=== PATIENT | female | born 1960 | race Caucasian/White ===

== ENCOUNTER 2018-05-08 08:28 | Observation (INO) ==
--- NOTE | 2018-05-08 09:01 | ED ---
HPI General Chief Complaint: Fall Stated Complaint: Elbow Injury/Fall Time Seen by Provider: 05/08/18 08:39 Source: patient Mode of arrival: ambulatory Limitations: no limitations History of Present Illness HPI Narrative: Patient is a 57-year-old female who presents the emergency room complaints of right-sided elbow pain. Patient reports that she was trying to get ready this morning and tripped over little fence at her home. Patient reports that she landed directly on her right elbow, denies any trauma to the head or neck. Patient reports that when she fell, she heard a creak and now has severe pain to her right elbow. Patient with no other complaints at this time. Related Data Home Medications Medication Instructions Recorded Confirmed No Known Home Medications 05/08/18 05/08/18 Allergies Allergy/AdvReac Type Severity Reaction Status Date / Time codeine AdvReac nausea and Verified 05/08/18 08:55 vomting Review of Systems ROS: all other systems reviewed are negative PMFSH History History Provided By: Patient Surgical History Surgical History H/O breast augmentation (Acute) Social History Social History Substance History: No History of Abuse Second Hand Smoke Exposure: No Smoking Status: Former smoker How Often Do You Have a Drink Containing Alcohol: 2 to 4 times a month Recent Travel in [facility] within the Last 8 Weeks: No Recent Out of Country Travel within the Last 8 Weeks: No Exam Narrative Exam Narrative: GENERAL: moderate distress SKIN: Focused skin assessment warm/dry. HEAD: Atraumatic. Normocephalic. EYES: Pupils equal and round. No scleral icterus. No injection or drainage. ENT: No nasal bleeding or discharge. Mucous membranes pink and moist. NECK: Trachea midline. No JVD. CARDIOVASCULAR: Regular rate and rhythm. No murmur appreciated. RESPIRATORY: No accessory muscle use. Clear to auscultation. Breath sounds equal bilaterally. GASTROINTESTINAL: Abdomen soft, non-tender, nondistended. Hepatic and splenic margins not palpable. MUSCULOSKELETAL: No clubbing. No cyanosis. No edema. LUE: normal exam, RUE: normal rom to shoulder/wrist, digits of fingers, no scaphoid tendnerness, pain with rom to right elbow - no open fx of lacerations/abrasions, pulses intact, no neurovascular compromise NEUROLOGICAL: Awake and alert. No obvious cranial nerve deficits. Motor grossly within normal limits. Normal speech. PSYCHIATRIC: Appropriate mood and affect; insight and judgment normal. Procedures Orthopedic Joint Reduction Joint #1: Time Out Performed: Yes Side: right Joint Reduction Location: elbow Analgesia: procedural sedation Technique Used: traction/counter-traction Post-Reduction Neuro Exam: intact Post-Reduction Vascular Exam: intact Post Reduction X-Ray Obtained: Yes Splint Applied: Yes Patient Tolerated Procedure: well and no complications Orthopedic Splinting/Casting Injury #1: Side: right Upper Extremity Injury Location: elbow Upper Extremity Immobilizer: posterior splint and sugar tong splint Procedural Sedation Indications: fracture/dislocation reduction ASA Class: ASA 1 Normal Healthy Patient Preparation: monitoring analyst applied, pulse oximeter, supplemental O2 applied, suction/airway equipment at bedside and IV secured IV Propofol Dose (mgs): 50 Patient Tolerated Procedure: well and no complications Complications: none Course Initial Documented Vital Signs Temperature 97.8 F 05/08/18 08:29 Pulse Rate 74 05/08/18 08:29 Respiratory Rate 22 05/08/18 08:29 Blood Pressure 124/88 05/08/18 08:29 Pulse Oximetry 100 05/08/18 08:29 Last Documented Vital Signs Temperature 97.8 F 05/08/18 08:29 Pulse Rate 72 05/08/18 08:33 Respiratory Rate 16 05/08/18 08:33 Blood Pressure 172/70 H 05/08/18 08:33 Pulse Oximetry 100 05/08/18 10:33 Medical Decision Making MDM Narrative Medical decision making narrative: During the course of the patients emergency department visit, the patients history, examination, and differential diagnosis were reviewed with the patient. The patient was initially provided IM toradol for pain relief Patient with a fracture dislocation to the consented to conscious sedation and closed reduction of the elbow. After reduction, x-ray of the elbow was ordered for post reduction films. Call was made to orthopedic surgery case reviewed with Dr. Cummins with orthopedic surgery - plan to keep patient NPO and admit to medicine service Case reviewed with FP resident - will accept pt to Dr. Avila service Differential Diagnosis Differential Diagnosis: elbow fx/strain Medical Records Medical records reviewed: Yes I reviewed the patient's medical records. Lab Data Result diagrams: 05/08/18 10:50 05/08/18 10:50 Lab Results 08/13/18 08/13/18 08/13/18 Range/Units 10:50 10:50 10:50 WBC 9.5 (4.0-11.0) th/mm3 RBC 4.20 (4.00-5.30) mil/mm3 Hgb 13.2 (11.6-15.3) gm/dL Hct 38.5 (35.0-46.0) % MCV 91.6 (80.0-100.0) fL MCH 31.5 (27.0-34.0) pg MCHC 34.3 (32.0-36.0) % RDW 12.6 (11.6-17.2) % Plt Count 278 (150-450) th/mm3 MPV 7.6 (7.0-11.0) fL Neut % (Auto) 85.2 H (16.0-70.0) % Lymph % (Auto) 11.5 (9.0-44.0) % [place] % (Auto) 3.0 (0.0-8.0) % Eos % (Auto) 0.1 (0.0-4.0) % Baso % (Auto) 0.2 (0.0-2.0) % Neut # (Auto) 8.1 H (1.8-7.7) th/mm3 Lymph # (Auto) 1.1 (1.0-4.8) th/mm3 [place] # (Auto) 0.3 (0.0-0.9) th/mm3 Eos # (Auto) 0.0 (0.0-0.4) th/mm3 Baso # (Auto) 0.0 (0.0-0.2) th/mm3 WBC Differential . Differential Comment Auto diff final PT 10.1 (9.8-11.6) sec INR 1.0 Ratio APTT 25.0 (24.3-30.1) sec Sodium 137 (136-145) meq/L Potassium 3.6 (3.5-5.1) meq/L Chloride 104 (98-107) meq/L Carbon Dioxide 23.6 (21.0-32.0) meq/L Anion Gap 9 (5-15) meq/L BUN 10 (7-18) mg/dL Creatinine 0.63 (0.50-1.00) mg/dL Estimated GFR Greater than 89 (>89) mL/min Random Glucose 112 H (74-106) mg/dL Calcium 9.0 (8.5-10.1) mg/dL Imaging Data Radiologist's impression: Forearm X-Ray 05/08/18 08:56 CONCLUSION: Negative fracture of the olecranon with dislocation of the humeral head. Hand X-Ray 05/08/18 08:56 CONCLUSION: Negative for displaced fracture. Humerus X-Ray 05/08/18 08:57 CONCLUSION: 1. Fracture dislocation of the right elbow. Comminuted and displaced fracture of the proximal ulna with intra-articular extension. 2. Radial head is displaced of the radius otherwise appears to be intact. 3. Large associated joint effusion. Discharge Plan Discharge Disposition Patient Disposition: 30 Still Patient Discharge Condition Condition: Stable Discharge Details Diagnosis: Closed fracture dislocation of elbow Physicians Team ED Provider: Edwige Villegas Primary Care Provider: Primary Care Lisa Calvillo Rxs /Orders / Referrals /Forms Prescriptions: No Action No Known Home Medications RF: 0 Status ED Status: With Doctor
--- NOTE | 2018-05-08 10:19 | XR ---
EXAM DATE: 05/08/2018 10:16 AM EDT AGE/SEX: 57 years / Female INDICATIONS: Right forearm pain; fall today. CLINICAL DATA: This is the patient's initial encounter. Patient reports that signs and symptoms have been present for 1 day and indicates a pain score of 10/10. MEDICAL/SURGICAL HISTORY: None. None. COMPARISON: [facility] – [place], ELBOW COMPLETE RIGHT 4V, 05/08/2018. . FINDINGS: Severely comminuted fracture of the proximal ulna including the olecranon with dislocation of the rad ial head. The distal humerus appears intact. CONCLUSION: Negative fracture of the olecranon with dislocation of the humeral head. Electronically signed by: Magdaleno Uribe MD 05/08/2018 10:18 AM EDT
--- NOTE | 2018-05-08 10:20 | XR ---
EXAM DATE: 05/08/2018 10:11 AM EDT AGE/SEX: 57 years / Female INDICATIONS: Right hand pain; fall this morning. CLINICAL DATA: This is the patient's initial encounter. Patient reports that signs and symptoms have been present for 1 day and indicates a pain score of 5/10. MEDICAL/SURGICAL HISTORY: None. None. COMPARISON: [facility], FOREARM RIGHT 2V, 05/08/2018. . FINDINGS: Bony structures are intact and in normal alignment. Osseous density is normal. Soft tissues are unre markable. No radiopaque foreign bodies seen. CONCLUSION: Negative for displaced fracture. Electronically signed by: Magdaleno Uribe MD 05/08/2018 10:19 AM EDT
[2018-05-08] MEDS ORDERED: Morphine Inj 4 MG/ML Vial IV.PUSH ONE (10:34)
--- NOTE | 2018-05-08 10:56 | XR ---
EXAM DATE: 05/08/2018 10:26 AM EDT AGE/SEX: 57 years / Female INDICATIONS: Right arm pain after fall today. CLINICAL DATA: This is the patient's initial encounter. Patient reports that signs and symptoms have been present for 1 day and indicates a pain score of 10/10. MEDICAL/SURGICAL HISTORY: None. None. [place] [facility] [place]. . FINDINGS: Fracture dislocation of the elbow. Comminuted displaced fracture through the proximal ulna. Radial he ad is displaced but the radius appears to be otherwise intact. Large intra-articular joint effusion. Humerus is intact. CONCLUSION: 1. Fracture dislocation of the right elbow. Comminuted and displaced fracture of the proximal ulna w ith intra-articular extension. 2. Radial head is displaced of the radius otherwise appears to be intact. 3. Large associated joint effusion. Electronically signed by: Aleksadnr Mari MD 05/08/2018 10:55 AM EDT
[2018-05-08 11:23] LABS: Baso % (Auto) 0.2 % (0.0-2.0); Eos % (Auto) 0.1 % (0.0-4.0); Hematocrit 38.5 % (35.0-46.0); Hemoglobin 13.2 gm/dL (11.6-15.3); Lymph # (Auto) 1.1 th/mm3 (1.0-4.8); Lymph % (Auto) 11.5 % (9.0-44.0); Mean Corpuscular HGB Conc 34.3 % (32.0-36.0); Mean Corpuscular Hemoglobin 31.5 pg (27.0-34.0); Mean Corpuscular Volume 91.6 fL (80.0-100.0); Mean Platelet Volume 7.6 fL (7.0-11.0); Mono # (Auto) 0.3 th/mm3 (0.0-0.9); Neut # (Auto) 8.1 th/mm3 (1.8-7.7); Neut % (Auto) 85.2 % (16.0-70.0); Platelet Count 278 th/mm3 (150-450); Red Cell Distribution Width 12.6 % (11.6-17.2); White Blood Count 9.5 th/mm3 (4.0-11.0)
[2018-05-08 11:35] LABS: Anion Gap 9 meq/L (5-15); Blood Urea Nitrogen 10 mg/dL (7-18); Carbon Dioxide 23.6 meq/L (21.0-32.0); Chloride 104 meq/L (98-107); Glomerular Filtration Rate Greater Than 89 mL/min (>89); Glucose,Random 112 mg/dL (74-106); Potassium 3.6 meq/L (3.5-5.1); Sodium 137 meq/L (136-145)
[2018-05-08 11:36] LABS: Prothrombin Time 10.1 sec (9.8-11.6)
--- NOTE | 2018-05-08 12:09 | XR ---
EXAM DATE: 05/08/2018 12:07 PM EDT AGE/SEX: 57 years / Female INDICATIONS: Post reduction right elbow CLINICAL DATA: This is the patient's subsequent encounter. Patient reports that signs and symptoms h ave been present for 1 day and indicates a pain score of 10/10. MEDICAL/SURGICAL HISTORY: . right elbow fracture None. COMPARISON: [facility], HUMERUS RIGHT MIN 2V, 05/08/2018. . FINDINGS: Post splinting exam demonstrates significantly better alignment of the patient's severely comminuted fracture of the proximal ulna with extension into the olecranon process. CONCLUSION: Significantly better alignment of the patient's ulnar fracture post splinting. Electronically signed by: Gigi Uribe MD 05/08/2018 12:07 PM EDT
[2018-05-08] MEDS ORDERED: Temazepam 15 MG Capsule PO PRN (12:40)
[2018-05-08] MEDS ORDERED: Bisacodyl 10 MG Supp RECTAL PRN (12:40)
[2018-05-08] MEDS ORDERED: Naloxone Inj 0.4 MG/ML Vial IV.PUSH PRN (12:43)
[2018-05-08] MEDS ORDERED: Acetaminophen 325 MG Tablet PO PRN (12:43)
[2018-05-08] MEDS ORDERED: HYDROmorphone PF Inj 2 MG/ML Vial IV.PUSH PRN (12:43)
--- NOTE | 2018-05-08 12:46 | P.HPFP ---
History of Present Illness Primary Care Physician: No Primary Care Physician Chief Complaint: Right elbow pain History of Present Illness: 57-year-old female with no past medical history presented to the emergency room with right elbow pain after fall. Patient states she was in her normal state of health that she was helping her grandson preparing for school this morning she tripped over an object in the house and fell with all of her weight onto her right elbow. She felt a dislodging type movement but did not feel any sudden bruising or swelling at the time. She took her grandson to school and then came directly to the emergency room. Shortly after arriving she began to experience worsening pain and swelling. X-ray of the elbow in the ED showed fracture dislocation of the right elbow. Comminuted and displaced fracture of the proximal ulna with intra-articular extension. Patient was sedated in the ED and a closed reduction was performed by the ED physician. Repeat x-rays showed significantly better alignment of the ulnar fracture post splinting. - Diagnosis (1) Closed fracture dislocation of elbow (2) Nutrition, metabolism, and development symptoms Review of Systems Constitutional: Denies chills, Denies fever(s) Eyes: Denies blurry vision, Denies change in vision Cardiovascular: Denies chest pain, Denies shortness of breath Respiratory: Denies cough, Denies wheezing Gastrointestinal: Denies abdominal pain, Denies black, tarry stools, Denies nausea, Denies vomiting Genitourinary: Denies blood in urine, Denies urinary urgency Musculoskeletal: Reports joint pain, Denies neck pain Comments: R elbow only Neurologic: Denies dizziness, Denies fainting, Denies frequent falls, Denies headache(s) Hematologic/Lymphatic: Denies easy bleeding, Denies easy bruising PMFSH - History History Provided By: Patient - Medical / Surgical Hx Neg / Unobtainable Medical Problems Denied: Yes - Surgical History Surgical History: Surgical History (Last Reviewed 05/08/18 @ 15:26 by Joseph Jorge MD, R2) H/O breast augmentation - Tobacco History Second Hand Smoke Exposure: No Tobacco Use In Past 30 Days: No Smoking Status: Former smoker - Alcohol History How Often Do You Have a Drink Containing Alcohol: 2 to 4 times a month - Substance Use History Substance History: No History of Abuse - Travel History Recent Travel in the [facility] Within the Last 8 Weeks: No Recent Travel Out of the Country Within the Last 8 Weeks: No - Immunization History Tetanus Immunization: Never Vaccinated Hx Influenza Vaccine This Season: No Medications and Allergies Active Medications: Active Medications Acetaminophen (Tylenol) 650 mg PO Q6HR PRN PRN Reason: PAIN SCALE 1 TO 2 Al Hydroxide/Mg Hydroxide (Milk Of Mallory Ross) 30 ml PO Q12H PRN PRN Reason: Mild Constipation Bisacodyl (Dulcolax Supp) 10 mg RECTAL DAILY PRN PRN Reason: SEVERE CONSITIPATION Hydromorphone HCl (Dilaudid Pf Inj) 1 mg IV.PUSH Q3H PRN PRN Reason: BREAKTHROUGH PAIN Morphine Sulfate (Morphine Inj) 4 mg IV.PUSH Q3H PRN PRN Reason: PAIN 6-10;IF UNABLE TO TAKE PO Naloxone HCl (Narcan Inj) 0.4 mg IV.PUSH UNSCH PRN PRN Reason: SEE LABEL COMMENTS Ondansetron HCl (Zofran Inj) 4 mg IV.PUSH Q6H PRN PRN Reason: NAUSEA OR VOMITING Senna/Docusate Sodium (Gema-Colace) 1 tab PO BID RUI Sennosides (Senokot) 17.2 mg PO Q12H PRN PRN Reason: Moderate Constipation Sodium Chloride (Ns Flush) 2 ml IV.FLUSH PRN PRN PRN Reason: FLUSH AFTER USING IV ACCESS Last Admin: 05/08/18 11:20 Dose: 2 ml Temazepam (Restoril) 15 mg PO HS PRN PRN Reason: INSOMNIA Allergies Allergy/AdvReac Type Severity Reaction Status Date / Time codeine AdvReac nausea and Verified 05/08/18 08:55 vomting Home Medications Medication Instructions Recorded Confirmed Type No Known Home Medications 05/08/18 05/08/18 History Exam Vital signs: Vital Signs 05/08/18 08:29 05/08/18 08:33 05/08/18 10:33 Temperature 97.8 F Pulse Rate 74 72 Respiratory Rate 22 16 Blood Pressure 124/88 172/70 H Pulse Oximetry 100 99 100 Intake & Output 05/07/18 05/08/18 05/08/18 18:59 06:59 18:59 Output Total 200 / 200 Balance -200 / -200 Weight 65.771 kg Output: Urine 200 / 200 Other: # Voids 1 Narrative: GENERAL: Well-developed well-nourished female sitting upright in bed in no acute distress. SKIN: Warm and dry. HEAD: Normocephalic. EYES: No scleral icterus. No injection or drainage. NECK: Supple, trachea midline. No JVD or lymphadenopathy. CARDIOVASCULAR: Regular rate and rhythm without murmurs, gallops, or rubs. RESPIRATORY: Breath sounds equal bilaterally. No accessory muscle use. GASTROINTESTINAL: Abdomen soft, non-tender, nondistended. MUSCULOSKELETAL: Right arm is wrapped with the elbow flexed at 90 and internally rotated. Adequate capillary refill, movement and sensation in the fingers of the right hand. No skin changes or pain in the right shoulder. BACK: Nontender without obvious deformity. No CVA tenderness. Results - Labs Result diagrams: 05/08/18 10:50 05/08/18 10:50 Abnormal lab results 05/08/18 05/08/18 Range/Units 10:50 10:50 Neut % (Auto) 85.2 H (16.0-70.0) % Neut # (Auto) 8.1 H (1.8-7.7) th/mm3 Random Glucose 112 H (74-106) mg/dL Short CBC 05/08/18 Range/Units 10:50 WBC 9.5 (4.0-11.0) th/mm3 Hgb 13.2 (11.6-15.3) gm/dL Hct 38.5 (35.0-46.0) % Plt Count 278 (150-450) th/mm3 BMP 05/08/18 10:50 Sodium 137 Potassium 3.6 Chloride 104 Carbon Dioxide 23.6 BUN 10 Creatinine 0.63 Calcium 9.0 - Imaging Impressions Forearm X-Ray 05/08/18 08:56 CONCLUSION: Negative fracture of the olecranon with dislocation of the humeral head. Hand X-Ray 05/08/18 08:56 CONCLUSION: Negative for displaced fracture. Humerus X-Ray 05/08/18 08:57 CONCLUSION: 1. Fracture dislocation of the right elbow. Comminuted and displaced fracture of the proximal ulna with intra-articular extension. 2. Radial head is displaced of the radius otherwise appears to be intact. 3. Large associated joint effusion. Elbow X-Ray 05/08/18 11:38 CONCLUSION: Significantly better alignment of the patient's ulnar fracture post splinting. Caprini VTE Risk Assessment Caprini VTE Risk Assessment: Moderate/High Risk (score >= 2) Caprini Risk Assessment Model: Point Value = 1 Point Value = 2 Point Value = 3 Point Value = 5 Age 41-60 Minor surgery BMI > 25 kg/m2 Swollen legs Varicose veins or History of unexplained or recurrent spontaneous Oral contraceptives or hormone replacement Sepsis (< 1 month) Serious lung disease, including pneumonia (< 1 month) Abnormal pulmonary function Acute myocardial infarction Congestive heart failure (< 1 month) History of inflammatory bowel disease Medical patient at bed rest Age 61-74 Arthroscopic surgery Major open surgery (> 45 min) Laparoscopic surgery (> 45 min) Malignancy Confined to bed (> 72 hours) Immobilizing plaster cast Central venous access Age >= 75 History of VTE Family history of VTE Factor V Leiden Prothrombin [id number] Lupus anticoagulant Anticardiolipin antibodies Elevated serum homocysteine Heparin-induced thrombocytopenia Other congenital or acquired thrombophilia Stroke (< 1 month) Elective arthroplasty Hip, pelvis, or leg fracture Acute spinal cord injury (< 1 month) Prophylaxis Regimen: Total Risk Factor Score Risk Level Prophylaxis Regimen 0-1 Low Early ambulation 2 Moderate Order ONE of the following: *Sequential Compression Device (SCD) *Heparin 5000 units SQ BID 3-4 Higher Order ONE of the following medications: *Heparin 5000 units SQ TID *Enoxaparin/Lovenox 40 mg SQ daily (WT < 150 kg, CrCl > 30 mL/min) *Enoxaparin/Lovenox 30 mg SQ daily (WT < 150 kg, CrCl > 10-29 mL/min) *Enoxaparin/Lovenox 30 mg SQ BID (WT < 150 kg, CrCl > 30 mL/min) AND/OR *Sequential Compression Device (SCD) 5 or more Highest Order ONE of the following medications: *Heparin 5000 units SQ TID (Preferred with Epidurals) *Enoxaparin/Lovenox 40 mg SQ daily (WT < 150 kg, CrCl > 30 mL/min) *Enoxaparin/Lovenox 30 mg SQ daily (WT < 150 kg, CrCl > 10-29 mL/min) *Enoxaparin/Lovenox 30 mg SQ BID (WT < 150 kg, CrCl > 30 mL/min) AND *Sequential Compression Device (SCD) Assessment and Plan - Assessment (1) Closed fracture dislocation of elbow Code(s): S42.409A - Unspecified fracture of lower end of unspecified humerus, initial encounter for closed fracture Status: Acute Plan: X-ray on admission showed : CONCLUSION: 1. Fracture dislocation of the right elbow. Comminuted and displaced fracture of the proximal ulna with intra-articular extension. 2. Radial head is displaced of the radius otherwise appears to be intact. 3. Large associated joint effusion. Patient was sedated and was manually reduced. Repeat x-ray showed better alignment of the patient's ulnar fracture and splinting Orthopedic surgery was consulted. Will plan for ORIF on 05/09. N.p.o. at midnight (2) Nutrition, metabolism, and development symptoms Code(s): R63.8 - Other symptoms and signs concerning food and fluid intake Status: Acute Plan: Regular diet today. N.p.o. at midnight No IV fluids at this time Electrolytes normal, will replace as needed SCDs for DVT prophylaxis (1) Closed fracture dislocation of elbow Qualifiers: Encounter type: initial encounter Laterality: right Qualified Code(s): S42.401A - Unspecified fracture of lower end of right humerus, initial encounter for closed fracture
--- NOTE | 2018-05-08 12:59 | P.PNFP ---
Subjective Interval history: Attending note: Very pleasant 57-year-old woman presents to the emergency room having fallen at home with explainable reason landing on her right elbow resulting in the comminuted fracture. Patient is being admitted for medical management, with surgery has been consulted. Patient's general health is excellent, rarely takes any medications. A plastic surgery approximately 13 years ago, no complications of anesthesia, blood transfusions. No history of anesthesia issues. Refer to resident H&P for complete discussion of the past medical history, family history, social history and review of systems. Results - Labs Result diagrams: 05/08/18 10:50 05/08/18 10:50 Abnormal lab results 05/08/18 05/08/18 Range/Units 10:50 10:50 Neut % (Auto) 85.2 H (16.0-70.0) % Neut # (Auto) 8.1 H (1.8-7.7) th/mm3 Random Glucose 112 H (74-106) mg/dL Short CBC 05/08/18 Range/Units 10:50 WBC 9.5 (4.0-11.0) th/mm3 Hgb 13.2 (11.6-15.3) gm/dL Hct 38.5 (35.0-46.0) % Plt Count 278 (150-450) th/mm3 BMP 05/08/18 10:50 Sodium 137 Potassium 3.6 Chloride 104 Carbon Dioxide 23.6 BUN 10 Creatinine 0.63 Calcium 9.0 - Imaging Impressions Forearm X-Ray 05/08/18 08:56 CONCLUSION: Negative fracture of the olecranon with dislocation of the humeral head. Hand X-Ray 05/08/18 08:56 CONCLUSION: Negative for displaced fracture. Humerus X-Ray 05/08/18 08:57 CONCLUSION: 1. Fracture dislocation of the right elbow. Comminuted and displaced fracture of the proximal ulna with intra-articular extension. 2. Radial head is displaced of the radius otherwise appears to be intact. 3. Large associated joint effusion. Elbow X-Ray 05/08/18 11:38 CONCLUSION: Significantly better alignment of the patient's ulnar fracture post splinting. Physical Exam Vital signs: Vital Signs 05/08/18 08:29 05/08/18 08:33 05/08/18 10:33 Temperature 97.8 F Pulse Rate 74 72 Respiratory Rate 22 16 Blood Pressure 124/88 172/70 H Pulse Oximetry 100 99 100 Intake & Output 05/07/18 05/08/18 05/08/18 18:59 06:59 18:59 Output Total 200 / 200 Balance -200 / -200 Weight 65.771 kg Output: Urine 200 / 200 Other: # Voids 1 Narrative: Vital signs noted. Lability to her blood pressure (problem secondary to pain). HEENT: Nonlocalizing. Lungs: Clear to auscultation. Cardiac: S1-S2, no S3 or significant murmurs. Extremities: Right arm splint. Extremities without edema, calf is supple. Refer to resident's H&P for complete discussion of physical exam. Labs and x-ray were reviewed. Assessment and Plan - Assessment and Plan Assessment/plan: Comminuted fracture, stabilized, for ORIF on 05/09/2015. Medically cleared for surgery.. Case discussed with the resident team, agree with orders as recorded. Usman Avila MD 05/08/2018.
[2018-05-08] MEDS: Morphine Inj 4 MG/ML Vial IV.PUSH PRN ×3 (16:45→23:40)
[2018-05-08] MEDS: Senna/Docusate Sodium 8.6/50 MG Tablet PO SCH (22:30)
[2018-05-08] MEDS ORDERED: Chlorhexidine Gluconate 2% 1 Pack (2 Cloths) TOPICAL SCH (23:30)
[2018-05-08] MEDS ORDERED: Metoprolol Tartrate 25 MG Tablet PO SCH (23:30)
[2018-05-08] MEDS ORDERED: Sodium Chlor 0.9% Inj 500 ML IV.SIG SCH (23:45)
[2018-05-09] MEDS: Morphine Inj 4 MG/ML Vial IV.PUSH PRN ×4 (03:04→21:20)
--- NOTE | 2018-05-09 10:38 | ECG ---
Date Performed: 05/09/2018 Time Performed: 08:11:06 PTAGE: 57 years EKG: Baseline artifact present Sinus rhythm NORMAL ECG NO PREVIOUS TRACING DOCTOR: Juan Dickerson Interpretating Date/Time 05/09/2018 10:37:04
[2018-05-09] MEDS ORDERED: Post-op Orders (for Pharmacy) OTHER STA (10:50)
--- NOTE | 2018-05-09 10:56 | P.OP ---
- Preoperative Diagnosis (1) Closed fracture dislocation of elbow Date of procedure: 05/09/18 Procedure: Open reduction right radial head dislocation, open reduction to fixation right proximal ulna fracture Anesthesia: GETA Surgeon: Chilo Caceres MD Carpet Finishing Supervisor: DEBBIE Fuentes PA-C The surgical procedure was assisted by my physician paralegal assistant. My P.A. presence was necessary throughout this case for the manipulation and positioning of the surgical extremity. My P.A. was assisting me throughout the duration of this procedure. The skill set of a physician paralegal assistant was medically necessary to complete this procedure. During the surgical case the surgical dental assistant was working at the back table and the physician paralegal assistant was directly assisting me. Operation and Findings: Implants used: Synthes Plan of activity: Start gentle range of motion in 2 weeks Details of procedure: Patient was seen and evaluated preoperatively. Patient was found to have a displaced intra-articular right olecranon fracture with radial head dislocation. The risk and benefits of the surgery were discussed in depth and informed consent was obtained. Risk of surgery include bleeding, infection, painful hardware, wound, case, elbow stiffness, loss of motion, elbow arthritis , injuries to arteries nerves or blood vessels, weakness and numbness of hand, as well as medical complications associated with general anesthesia. All questions were answered. Patient was brought to operating room. IV sedation and anesthesia were administered. Patient was placed into a lateral decubitus position. Timeout procedure was performed. IV antibiotics were administered prior to incision. The operative arm was prepped with alcohol followed by Hibiclens and draped in usual sterile fashion. Procedure began with a 7 inch incision over the olecranon. Subcutaneous tissue dissected with Bovie. Fracture site was visualized. Fascia was elevated around the fracture site. There was mild comminution of the fracture site. Fracture fragments were gently manipulated. A fracture tenaculum was used to aid in reduction. Multiple K wires result provisional fixation. The radial head was dislocated and was very unstable. A separate fascial incision was made over the lateral aspect of the radial head. There was noted to be an impaction fracture of the capitellum. The radial head was carefully reduced. A temporary K wire was placed to hold the radial head reduced. At this point the reduction of the ulna was revised and the length of the ulna was fully restored. A Synthes proximal plate was selected. Plate was provisionally held with K wires 3.5 cortical screws were used to compress plate to bone. Multiple cortical screws were placed in the ulna shaft. Multiple locking screws were placed in the proximal ulna. All screws were predrilled and premeasured for appropriate length. K wires were removed. Final fluoroscopy revealed excellent of fractures well-placed hardware. The radial head was concentrically reduced to the capitellum. Articular surface appeared to be in near anatomic alignment. Wound was now thoroughly irrigated. Incision was now closed with #1 Vicryl, 3-0 Vicryl, and archana. Sterile dressings were applied. Patient's placed a well molded well-padded splint. Patient was transferred to recovery in stable condition.
--- NOTE | 2018-05-09 11:15 | P.CONOP ---
[facility] Orthopedics Consult Note - [facility] Consult date: 05/09/18 Chief complaint: fracture dislocation of right elbow Narrative: Lindsey is a 57-year-old female who is relatively healthy. She describes a mechanical fall. She tripped at home and fell on her right elbow. She had immediate right elbow pain and deformity. She presented to the emergency room where x-rays revealed a fracture dislocation of her right elbow. She did not hit her head. She denies dizziness, syncope, or loss of consciousness. Her only complaint is her right elbow. Pain is worse with movement. Pain is improved with rest. Pain is severe with any movement. Review of Systems Patient denies fevers, chills, weight loss, headache, visual changes, hearing loss, chest pain, palpitations, shortness of breath, nausea, vomiting, no urinary changes, diarrhea, bowel changes, neck pain, back pain, skin rashes, weakness of extremities, easy bleeding, enlarged lymph nodes, numbness of extremities, anxiety, or depression. All other systems reviewed negative except as stated in [facility] PMFSH - History History Provided By: Patient, Significant Other - Medical / Surgical Hx Neg / Unobtainable Medical Problems Denied: Yes - Surgical History Surgical History: Surgical History (Last Reviewed 05/08/18 @ 15:26 by Joseph Jorge MD, R2) H/O breast augmentation - Tobacco History Second Hand Smoke Exposure: Yes Tobacco Use In Past 30 Days: No Smoking Status: Never smoker - Alcohol History How Often Do You Have a Drink Containing Alcohol: 2 to 3 times a week - Substance Use History Substance History: No History of Abuse - Travel History Recent Travel in the [place] Within the Last 8 Weeks: No Recent Travel Out of the Country Within the Last 8 Weeks: No - Immunization History Tetanus Immunization: Never Vaccinated Hx Influenza Vaccine This Season: No Medications and Allergies Active Medications: Active Medications Acetaminophen (Tylenol) 650 mg PO Q6H PRN PRN Reason: PAIN SCALE 1 TO 2 Hydrocodone Bitart/Acetaminophen ([place] 10/325) 1 tab PO Q3H PRN PRN Reason: Pain Scale 3-10 Al Hydroxide/Mg Hydroxide (Milk Of Magnesia Liq) 30 ml PO Q12H PRN PRN Reason: Mild Constipation Bisacodyl (Dulcolax Supp) 10 mg RECTAL DAILY PRN PRN Reason: SEVERE CONSITIPATION Calcium/Vitamin D (Oscal With D 250/125 Mg) 1 tab PO TID [facility] Chlorhexidine Gluconate (Chlorhexidine 2% Cloth) 3 pack TOPICAL MEDICAL RESEARCH TECH [facility] Stop: 05/11/18 23:16 Diphenhydramine HCl (Benadryl) 25 mg PO Q6H PRN PRN Reason: ITCHING Hydromorphone HCl (Dilaudid Pf Inj) 1 mg IV.PUSH Q3H PRN PRN Reason: BREAKTHROUGH PAIN Lactated Ringer's (Lr 1000 Ml Inj) 1,000 mls @ 30 mls/hr IV.SIG .Q24H [facility] Stop: 05/11/18 23:16 Last Admin: 05/09/18 08:00 Dose: 30 mls/hr Sodium Chloride (Ns Inj) 500 mls @ 30 mls/hr IV.SIG .Q10H [facility] Stop: 05/11/18 23:16 Cefazolin Sodium 2,000 mg/ (Sodium Chloride) 100 mls @ 200 mls/hr IV.SIG Q8H [facility] Stop: 05/10/18 03:29 Lactated Ringer's (Lr 1000 Ml Inj) 1,000 mls @ 50 mls/hr IV.CONT .Q20H [facility] Ketorolac Tromethamine (Toradol Inj) 15 mg IV.PUSH Q12H [facility] Stop: 05/10/18 11:01 Metoprolol Tartrate (Lopressor) 25 mg PO MEDICAL RESEARCH TECH [facility] Stop: 05/11/18 23:16 Last Admin: 05/09/18 08:08 Dose: Not Given Miscellaneous Information (Misc Post-Op Orders (For Pharmacy)) 0 each OTHER STAT STA Stop: 05/09/18 10:51 Morphine Sulfate (Morphine Inj) 4 mg IV.PUSH Q3H PRN PRN Reason: PAIN 6-10;IF UNABLE TO TAKE PO Last Admin: 05/09/18 06:30 Dose: 4 mg Morphine Sulfate (Morphine Inj) 4 mg IV.PUSH Q3H PRN PRN Reason: BREAKTHROUGH PAIN Naloxone HCl (Narcan Inj) 0.4 mg IV.PUSH UNSCH PRN PRN Reason: SEE LABEL COMMENTS Ondansetron HCl (Zofran Inj) 4 mg IV.PUSH Q6H PRN PRN Reason: NAUSEA OR VOMITING Last Admin: 05/08/18 16:52 Dose: 4 mg Ondansetron HCl (Zofran Odt) 4 mg PO Q6H PRN PRN Reason: NAUSEA OR VOMITING Oxycodone/Acetaminophen (Percocet 5/325 Mg) 1 tab PO Q6H PRN PRN Reason: PAIN SCALE 3 TO 5 Povidone Iodine (Betadine 5% Antisepsis Kit) 1 applicatio EACH NARE MEDICAL RESEARCH TECH [facility] Stop: 05/11/18 23:16 Last Admin: 05/09/18 08:08 Dose: 1 applicatio Senna/Docusate Sodium (Gema-Colace) 1 tab PO BID [facility] Last Admin: 05/08/18 22:30 Dose: Not Given Sennosides (Senokot) 17.2 mg PO Q12H PRN PRN Reason: Moderate Constipation Sodium Chloride (Ns Flush) 2 ml IV.FLUSH PRN PRN PRN Reason: FLUSH AFTER USING IV ACCESS Last Admin: 05/08/18 11:20 Dose: 2 ml Sodium Chloride (Ns Flush) 2 ml IV.FLUSH BID [facility] Sodium Chloride (Ns Flush) 2 ml IV.FLUSH PRN PRN PRN Reason: FLUSH AFTER USING IV ACCESS Temazepam (Restoril) 15 mg PO HS PRN PRN Reason: INSOMNIA Vitamin D (Vitamin D3) 5,000 unit PO DAILY [facility] Allergies Allergy/AdvReac Type Severity Reaction Status Date / Time codeine AdvReac nausea and Verified 05/08/18 08:55 vomting Exam Vital signs: Vital Signs 05/08/18 11:30 05/08/18 12:40 05/08/18 13:00 Temperature Pulse Rate 64 70 Respiratory Rate 18 17 Blood Pressure 113/67 113/67 Pulse Oximetry 100 05/08/18 14:00 05/08/18 15:30 05/08/18 17:06 Temperature 97.4 F L Pulse Rate 62 64 55 L Respiratory Rate 16 15 16 Blood Pressure 121/58 L 117/59 L 121/65 Pulse Oximetry 99 05/08/18 23:58 05/09/18 04:00 05/09/18 06:32 Temperature 98.7 F 98.2 F Pulse Rate 59 L 58 L Respiratory Rate 17 17 15 Blood Pressure 106/67 102/70 Pulse Oximetry 97 95 Intake & Output 05/08/18 05/09/18 05/09/18 18:59 06:59 18:59 Intake Total 360 / 360 1100 / 1100 Output Total 200 / 200 100 / 100 Balance 160 / 160 1000 / 1000 Weight 65.771 kg Intake: Oral 360 / 360 Anesthesia Amount 1100 / 1100 Output: Urine 200 / 200 Estimated Blood Loss 100 / 100 Other: # Voids 1 Narrative: Lindsey is a pleasant 57-year-old female. She is well-developed well- nourished. She is in no acute distress. She does appear mildly anxious. Normocephalic atraumatic Neck is soft nontender Abdomen soft nontender nondistended Examination of right upper extremity reveals no tenderness about her shoulder wrist or fingers. She has pain with any elbow motion. She has mild swelling. Radial pulse is palpable. Sensation is intact in radial, ulnar, and median nerve distributions. Skin is intact. Examination of left upper extremity reveals no pain or deformity with shoulder, elbow, or wrist motion. Skin is intact. Radial pulses are palpable bilaterally. Normal capillary refill in fingers. Sensation is intact in radial , ulnar, and median nerve distributions. Ignition Specialist strength is +5 bilaterally. No lymphadenopathy noted. Examination of bilateral lower extremities reveals no pain or deformity with hip , knee, or ankle motion. Skin is intact. Sensation is intact in both feet. Dorsalis pedis pulses are palpable. Normal capillary refill and feet. Thigh and calf compartments are soft. No lymphadenopathy noted. +5 strength of ankle dorsiflexion and plantarflexion. - Constitutional no acute distress - Routine HEENT Exam Head: Present: normocephalic - Routine Neck Exam Present: supple, full ROM Results - Labs Result Diagrams: 05/08/18 10:50 05/08/18 10:50 Labs: Laboratory Results - last 24 hr 05/08/18 05/08/18 05/08/18 10:50 10:50 10:50 WBC 9.5 RBC 4.20 Hgb 13.2 Hct 38.5 MCV 91.6 MCH 31.5 MCHC 34.3 RDW 12.6 Plt Count 278 MPV 7.6 Neut % (Auto) 85.2 H Lymph % (Auto) 11.5 [place] % (Auto) 3.0 Eos % (Auto) 0.1 Baso % (Auto) 0.2 Neut # (Auto) 8.1 H Lymph # (Auto) 1.1 [place] # (Auto) 0.3 Eos # (Auto) 0.0 Baso # (Auto) 0.0 WBC Differential . Differential Comment Auto diff final PT 10.1 INR 1.0 APTT 25.0 Sodium 137 Potassium 3.6 Chloride 104 Carbon Dioxide 23.6 Anion Gap 9 BUN 10 Creatinine 0.63 Estimated GFR Greater than 89 Random Glucose 112 H Calcium 9.0 - Diagnostic results Imaging: Impressions Elbow X-Ray 05/08/18 11:38 CONCLUSION: Significantly better alignment of the patient's ulnar fracture post splinting. Elbow x-ray: report reviewed, image reviewed Assessment and Plan - Problem List (1) Closed fracture dislocation of elbow Code(s): S42.409A - Unspecified fracture of lower end of unspecified humerus, initial encounter for closed fracture Status: Acute Qualifiers: Encounter type: initial encounter Laterality: right Qualified Code(s): S42.401A - Unspecified fracture of lower end of right humerus, initial encounter for closed fracture - Assessment and Plan Lindsey has a fracture dislocation of her right elbow. Treatment options were discussed in depth with her. At this point I would recommend open reduction internal fixation of proximal ulna with reduction of radial head. The risk and benefits of surgery were discussed in depth with patient. The risk of surgery include elbow stiffness, elbow arthritis, loss of motion, bleeding, infection, injuries to arteries, nerves, or blood vessels, infection, wound complications, nonunion, malunion, painful hardware, and need for further surgery. I also discussed medical complications including blood clots, pneumonia, stroke, heart attack, and . Informed consent was obtained and all questions were answered. Postoperatively the patient will be started on calcium and vitamin D. She will need to follow-up in clinic in 2 weeks A mid-level provider in my office (nurse practitioner or physician podiatry assistant) may see this patient on follow-up visits and continue to implement the objectives of this plan including: Starting or adjusting medications, injections , cast application, orthotics, brace application, physical therapy, radiological studies (including x-ray, MRI, CT, ultrasound, bone scan), vascular studies, neurologic studies, specialist consultation, and proceeding with surgical management, as appropriate.
[2018-05-09] MEDS ORDERED: *Meperidine Inj 25 MG/ML Vial PERIprocedural Use ONLY ONE (11:33)
[2018-05-09] MEDS ORDERED: fentaNYL Citrate Inj 100 MCG/2 ML Ampul ONE (11:36)
[2018-05-09] MEDS ORDERED: HYDROmorphone PF Inj 1 MG/ML Ampul ONE (11:37)
[2018-05-09] MEDS ORDERED: *morphine SULFATE 4 MG/ML PERIprocedure ONLY ONE ×2 (11:58→13:31)
[2018-05-09] MEDS ORDERED: Ketorolac Inj 30 MG/ML (IVP) Vial IV.PUSH ONE (12:00)
[2018-05-09] MEDS ORDERED: Neostigmine Inj 5 MG/5 ML Syringe IV.PUSH ONE (12:00)
[2018-05-09] MEDS ORDERED: Lidocaine PF 1% Inj 5 ML Syringe INFILTRATN ONE (12:00)
[2018-05-09] MEDS ORDERED: Glycopyrrolate Inj 1 MG/5 ML Syringe IV.PUSH ONE (12:00)
[2018-05-09] MEDS ORDERED: Phenylephrine/NS 1000 MCG/10ML Syringe IV.PUSH ONE (12:00)
--- NOTE | 2018-05-09 13:01 | XR ---
EXAM DATE: 05/09/2018 12:23 PM EDT AGE/SEX: 57 years / Female INDICATIONS: Right elbow open reduction internal fixation. CLINICAL DATA: This is the patient's initial encounter. Patient reports that signs and symptoms have been present for 1 day and indicates a pain score of Nonresponsive. MEDICAL/SURGICAL HISTORY: None. None. COMPARISON: No prior exams available for comparison. FINDINGS: Comminuted fracture of the proximal ulna has been repaired with a sideplate and multiple osseous scre ws. Fracture fragments are in excellent anatomic alignment. Previously radial head dislocation has be en reduced. CONCLUSION: 1. Successful reduction of the previously seen radial head dislocation. 2. Successful open reduction and internal fixation of the comminuted proximal ulnar fracture with a sideplate and osseous screws. Fracture fragments are in excellent anatomic alignment. Electronically signed by: Aleksandr Mari MD 05/09/2018 12:59 PM EDT
[2018-05-09] MEDS: Calcium/Vitamin D 250/125 MG Tablet PO SCH ×2 (13:48→17:43)
[2018-05-09] MEDS: Ketorolac Inj 30 MG/ML (IVP) Vial IV.PUSH SCH (13:51)
[2018-05-09] MEDS: Senna/Docusate Sodium 8.6/50 MG Tablet PO SCH ×2 (14:14→20:07)
--- NOTE | 2018-05-09 15:34 | P.PNFP ---
Subjective Interval history: Patient evaluated this afternoon after her ORIF. Patient is awake and alert states that she does feel sharp pain at the incision site. Is requesting an increase in her pain medication. She has tolerated p.o. ice chips/water without any nausea vomiting. Has not passed gas yet. Otherwise has no complaints of chest pain, shortness of breath, fever or chills. Results - Labs Result diagrams: 05/08/18 10:50 05/08/18 10:50 - Imaging Impressions Elbow X-Ray 05/09/18 00:00 CONCLUSION: 1. Successful reduction of the previously seen radial head dislocation. 2. Successful open reduction and internal fixation of the comminuted proximal ulnar fracture with a sideplate and osseous screws. Fracture fragments are in excellent anatomic alignment. Physical Exam Vital signs: Vital Signs 05/08/18 15:30 05/08/18 17:06 05/08/18 23:58 Temperature 97.4 F L 98.7 F Pulse Rate 64 55 L 59 L Respiratory Rate 15 16 17 Blood Pressure 117/59 L 121/65 106/67 Pulse Oximetry 99 97 05/09/18 04:00 05/09/18 06:32 05/09/18 11:27 Temperature 98.2 F 97.6 F Pulse Rate 58 L 65 Respiratory Rate 17 15 12 Blood Pressure 102/70 134/63 Pulse Oximetry 95 99 05/09/18 11:30 05/09/18 11:45 05/09/18 12:00 Temperature Pulse Rate 59 L 60 58 L Respiratory Rate 10 L 12 10 L Blood Pressure 142/65 H 147/67 H 140/65 Pulse Oximetry 100 96 96 05/09/18 12:15 05/09/18 12:30 05/09/18 14:00 Temperature 97.7 F Pulse Rate 56 L 55 L 56 L Respiratory Rate 10 L 10 L 11 L Blood Pressure 138/65 137/63 135/65 Pulse Oximetry 96 96 96 Intake & Output 05/08/18 05/09/18 05/09/18 18:59 06:59 18:59 Intake Total 360 / 360 1250 / 1250 Output Total 200 / 200 100 / 100 Balance 160 / 160 1150 / 1150 Weight 65.771 kg Intake: Oral 360 / 360 Anesthesia Amount 1250 / 1250 Output: Urine 200 / 200 Estimated Blood Loss 100 / 100 Other: # Voids 1 Narrative: Vital signs noted. No abnormalities GEN: Well-developed female sitting upright in bed in no acute distress. Awake and alert and speaking in full sentences. HEENT: Nonlocalizing. Lungs: Clear to auscultation. Cardiac: S1-S2, no S3 or significant murmurs. Extremities: Right arm splint. Right hand is edematous, but warm and well perfused with sensation and motion intact. Extremities without edema, calf is supple. Assessment and Plan - Assessment (1) Closed fracture dislocation of elbow Code(s): S42.409A - Unspecified fracture of lower end of unspecified humerus, initial encounter for closed fracture Status: Acute Plan: X-ray on admission showed : CONCLUSION: 1. Fracture dislocation of the right elbow. Comminuted and displaced fracture of the proximal ulna with intra-articular extension. 2. Radial head is displaced of the radius otherwise appears to be intact. 3. Large associated joint effusion. Orthopedic surgery was consulted and ORIF performed on 05/09 Advancing diet as tolerated Pain scale per orthopedic recommendations Will likely discharge tomorrow (2) Nutrition, metabolism, and development symptoms Code(s): R63.8 - Other symptoms and signs concerning food and fluid intake Status: Acute Plan: Advancing diet as tolerated No IV fluids at this time Electrolytes normal, will replace as needed SCDs for DVT prophylaxis - Assessment and Plan 57-year-old female with no past medical history that presented to the ED with a right displaced fracture of the proximal ulna with intra-articular extension as well as a radial head dislocation. ORIF performed on 05/09. Will plan for discharge on 05/10. (1) Closed fracture dislocation of elbow Qualifiers: Encounter type: initial encounter Laterality: right Qualified Code(s): S42.401A - Unspecified fracture of lower end of right humerus, initial encounter for closed fracture
[2018-05-09] MEDS: ceFAZolin Inj 2,000 MG in Sodium Chlor 0.9% Inj 80 ML IV.SIG SCH ×2 (15:35→23:02)
[2018-05-10] MEDS: Morphine Inj 4 MG/ML Vial IV.PUSH PRN (00:29)
[2018-05-10] MEDS: Ketorolac Inj 30 MG/ML (IVP) Vial IV.PUSH SCH ×2 (00:29→12:01)
--- NOTE | 2018-05-10 06:55 | P.PNOP ---
Subjective Interval history: POD 1 ORIF right proximal ulna and reduction of radial head reports significant pain. out of bed to bathroom Physical Exam Vital signs: Vital Signs 05/09/18 11:27 05/09/18 11:30 05/09/18 11:45 Temperature 97.6 F Pulse Rate 65 59 L 60 Respiratory Rate 12 10 L 12 Blood Pressure 134/63 142/65 H 147/67 H Pulse Oximetry 99 100 96 05/09/18 12:00 05/09/18 12:15 05/09/18 12:30 Temperature 97.7 F Pulse Rate 58 L 56 L 55 L Respiratory Rate 10 L 10 L 10 L Blood Pressure 140/65 138/65 137/63 Pulse Oximetry 96 96 96 05/09/18 14:00 05/09/18 15:00 05/09/18 18:32 Temperature 97.2 F L Pulse Rate 56 L Respiratory Rate 11 L 18 18 Blood Pressure 135/65 111/59 L Pulse Oximetry 96 93 L 05/09/18 20:00 05/10/18 00:00 05/10/18 04:00 Temperature 97.9 F 98.3 F 98.5 F Pulse Rate 65 59 L 65 Respiratory Rate 18 18 18 Blood Pressure 98/59 L 104/56 L 96/58 L Pulse Oximetry 97 96 94 L Intake & Output 05/09/18 05/09/18 05/10/18 06:59 18:59 06:59 Intake Total 1350 / 1350 560 / 560 Output Total 100 / 100 Balance 1250 / 1250 560 / 560 Weight 65.77 kg Intake: IV 100 / 100 100 / 100 Ancef Inj 2,000 MG In NS Inj 80 100 / 100 100 / 100 ML @ 200 mls/hr IV.SIG Q8H RUI Rx#:[id number] Oral 460 / 460 Anesthesia Amount 1250 / 1250 Output: Estimated Blood Loss 100 / 100 Other: # Voids 1 Date of Last Bowel Movement 05/07/18 05/07/18 Weight On Admission 65.77 kg Narrative: RUE: +long arm splint. intact. NVI to median/ulnar nerve Results - Labs CBC & Chem 7: 05/08/18 10:50 05/08/18 10:50 - Imaging Impressions Elbow X-Ray 05/09/18 00:00 CONCLUSION: 1. Successful reduction of the previously seen radial head dislocation. 2. Successful open reduction and internal fixation of the comminuted proximal ulnar fracture with a sideplate and osseous screws. Fracture fragments are in excellent anatomic alignment. Assessment and Plan - Problem List (1) Closed fracture dislocation of elbow Code(s): S42.409A - Unspecified fracture of lower end of unspecified humerus, initial encounter for closed fracture Status: Acute Qualifiers: Encounter type: initial encounter Laterality: right Qualified Code(s): S42.401A - Unspecified fracture of lower end of right humerus, initial encounter for closed fracture - Assessment and Plan 1) Right Proximal Ulnar fx with radial head subluxation s/p ORIF - POD 1 -NWB -maintain splint at all times -will order xray today of elbow to confirm reduction of radial head -plan for DC home today if tolerating pain well and xrays are satisfactory -follow up with Dr Crabtree or ZACHARY in 1 week for recheck XRAY in her splint -ortho cleared for DC E-GynzyE Prescription Drug Monitoring Database has been queried and verified prior to prescribing the controlled substance. Acute pain exception. This patient has normal, predicted, physiological, and time limited response to an adverse mechanical stimulus associated with surgery, trauma, or acute illness as described in my notes. There is a lack of alternative treatment options other than to include the prescribed narcotic treatment for this condition.
[2018-05-10] MEDS: Senna/Docusate Sodium 8.6/50 MG Tablet PO SCH (08:48)
[2018-05-10] MEDS: Calcium/Vitamin D 250/125 MG Tablet PO SCH ×3 (08:48→18:10)
[2018-05-10] MEDS: ceFAZolin Inj 2,000 MG in Sodium Chlor 0.9% Inj 80 ML IV.SIG SCH (08:48)
--- NOTE | 2018-05-10 10:26 | P.PNFP ---
Subjective Interval history: Patient is tearful. Nervous about x-ray because she was told that her arm was gradual. Also previous x-ray was very painful. Discussed with patient that x-ray should be less painful this time and that pain medications will be given. Also discussed that fixation device will provide needed support. Patient had pain overnight 7 out of 10. Was improved with the Cincinnatus and morphine for break in pain. Patient up and moving and eating well. Patient has not passed any gas yet. Overnight required one Cincinnatus, morphine, and Toradol. Ortho cleared patient for discharge pending x-ray. <Cassidy Leo - 05/10/18 10:26> Results - Labs Result diagrams: 05/08/18 10:50 05/08/18 10:50 <Usman Avila - 05/11/18 11:13> - Imaging Impressions Elbow X-Ray 05/10/18 00:00 CONCLUSION: Open reduction and internal fixation of the previously seen comminuted proximal ulnar fracture. <Usman Avila - 05/11/18 11:13> Impressions Elbow X-Ray 05/09/18 00:00 CONCLUSION: 1. Successful reduction of the previously seen radial head dislocation. 2. Successful open reduction and internal fixation of the comminuted proximal ulnar fracture with a sideplate and osseous screws. Fracture fragments are in excellent anatomic alignment. <Cassidy Leo - 05/10/18 10:26> Physical Exam Vital signs: Vital Signs 05/10/18 12:00 05/10/18 16:00 Temperature 97.6 F 98.5 F Pulse Rate 71 71 Respiratory Rate 20 18 Blood Pressure 137/67 109/66 Pulse Oximetry 98 95 Intake & Output 05/10/18 05/11/18 05/11/18 18:59 06:59 18:59 Intake Total 1000 / 1000 Balance 1000 / 1000 Intake: IV 1000 / 1000 LR 1000 mL Inj 1,000 ML @ 50 1000 / 1000 mls/hr IV.CONT .Q20H [facility] Rx#: [id number] Other: Date of Last Bowel Movement 05/07/18 <Usman Avila 05/11/18 11:13> Vital Signs 05/09/18 11:27 05/09/18 11:30 05/09/18 11:45 Temperature 97.6 F Pulse Rate 65 59 L 60 Respiratory Rate 12 10 L 12 Blood Pressure 134/63 142/65 H 147/67 H Pulse Oximetry 99 100 96 05/09/18 12:00 05/09/18 12:15 05/09/18 12:30 Temperature 97.7 F Pulse Rate 58 L 56 L 55 L Respiratory Rate 10 L 10 L 10 L Blood Pressure 140/65 138/65 137/63 Pulse Oximetry 96 96 96 05/09/18 14:00 05/09/18 15:00 05/09/18 18:32 Temperature 97.2 F L Pulse Rate 56 L Respiratory Rate 11 L 18 18 Blood Pressure 135/65 111/59 L Pulse Oximetry 96 93 L 05/09/18 20:00 05/10/18 00:00 05/10/18 04:00 Temperature 97.9 F 98.3 F 98.5 F Pulse Rate 65 59 L 65 Respiratory Rate 18 18 18 Blood Pressure 98/59 L 104/56 L 96/58 L Pulse Oximetry 97 96 94 L 05/10/18 08:00 Temperature 97.3 F L Pulse Rate 67 Respiratory Rate 12 Blood Pressure 115/69 Pulse Oximetry 96 Intake & Output 05/09/18 05/10/18 05/10/18 18:59 06:59 18:59 Intake Total 1350 / 1350 560 / 560 1000 / 1000 Output Total 100 / 100 Balance 1250 / 1250 560 / 560 1000 / 1000 Weight 65.77 kg Intake: IV 100 / 100 100 / 100 1000 / 1000 LR 1000 mL Inj 1,000 ML @ 50 1000 / 1000 mls/hr IV.CONT .Q20H [facility] Rx#: [id number] Ancef Inj 2,000 MG In NS Inj 80 100 / 100 100 / 100 ML @ 200 mls/hr IV.SIG Q8H [facility] Rx#:[id number] Oral 460 / 460 Anesthesia Amount 1250 / 1250 Output: Estimated Blood Loss 100 / 100 Other: # Voids 1 Date of Last Bowel Movement 05/07/18 05/07/18 Weight On Admission 65.77 kg <Cassidy Leo 05/10/18 10:26> Narrative: RUE: +long arm splint. sensation intact; able to make fist with assistance of left hand; swelling of hands and fingers <Cassidy Leo 05/10/18 10:26> - Constitutional mild distress <Cassidy Leo 05/10/18 10:26> - Detailed Respiratory Exam bilateral Present: clear to auscultation. Absent: wheezes <Cassidy Leo 05/10/18 10:26> - Routine Cardiovascular Exam Present: RRR, S1, S2. Absent: murmur <Cassidy Leo 05/10/18 10:26> - Routine Abdominal Exam Present: soft, normoactive bowel sounds <Cassidy Leo 05/10/18 10:26> Assessment and Plan - Assessment (1) Closed fracture dislocation of elbow Code(s): S42.409A - Unspecified fracture of lower end of unspecified humerus, initial encounter for closed fracture Status: Acute (2) Nutrition, metabolism, and development symptoms Code(s): R63.8 - Other symptoms and signs concerning food and fluid intake Status: Acute <Usman Avila - 05/11/18 11:13> (1) Closed fracture dislocation of elbow Code(s): S42.409A - Unspecified fracture of lower end of unspecified humerus, initial encounter for closed fracture Status: Acute Plan: X-ray on admission showed : CONCLUSION: 1. Fracture dislocation of the right elbow. Comminuted and displaced fracture of the proximal ulna with intra-articular extension. 2. Radial head is displaced of the radius otherwise appears to be intact. 3. Large associated joint effusion. Orthopedic surgery was consulted and ORIF performed on 05/09 Pain scale per orthopedic recommendations: Narco with morphine for breakthrough Repeat x-ray Discharge if x-ray unchanged from post surgery (2) Nutrition, metabolism, and development symptoms Code(s): R63.8 - Other symptoms and signs concerning food and fluid intake Status: Acute Plan: Diet: regular SCDs for DVT prophylaxis <Cassidy Leo Arun - 05/10/18 10:19> - Assessment and Plan Attending note: Patient was seen with resident team on the morning of 2017. Extensive discussion with the patient and her at bedside regarding discharge plans. Her apprehensions about pain management. Follow- up.. Agree with plans for discharge pending x-ray results and agree with orders as written by the resident team. Usman Avila MD 05/11/2018 <Usman Avila 05/11/18 11:13> 57-year-old female with no past medical history that presented to the ED with a right displaced fracture of the proximal ulna with intra-articular extension as well as a radial head dislocation. ORIF performed on 05/09. Discharge 05/10 on ortho pain medication recommendations with 2 week orthopedic follow-up <Cassidy Leo - 05/10/18 10:26> <Cassidy Leo - Last Filed: 05/10/18 10:19> (1) Closed fracture dislocation of elbow Qualifiers: Encounter type: initial encounter Laterality: right Qualified Code(s): S42.401A - Unspecified fracture of lower end of right humerus, initial encounter for closed fracture <Usman Avila E - Last Filed: 05/11/18 11:13> (1) Closed fracture dislocation of elbow Qualifiers: Encounter type: initial encounter Laterality: right Qualified Code(s): S42.401A - Unspecified fracture of lower end of right humerus, initial encounter for closed fracture <Cassidy Leo - Last Filed: 05/10/18 10:19> (1) Closed fracture dislocation of elbow Qualifiers: Encounter type: initial encounter Laterality: right Qualified Code(s): S42.401A - Unspecified fracture of lower end of right humerus, initial encounter for closed fracture <Usman Avila - Last Filed: 05/11/18 11:13> (1) Closed fracture dislocation of elbow Qualifiers: Encounter type: initial encounter Laterality: right Qualified Code(s): S42.401A - Unspecified fracture of lower end of right humerus, initial encounter for closed fracture
--- NOTE | 2018-05-10 13:47 | XR ---
EXAM DATE: 05/10/2018 1:11 PM EDT AGE/SEX: 57 years / Female INDICATIONS: Fracture. CLINICAL DATA: This is the patient's initial encounter. Patient reports that signs and symptoms have been present for 2 days and indicates a pain score of 8/10. MEDICAL/SURGICAL HISTORY: . fell 2 days ago. . right elbow surgery yesterday. COMPARISON: [facility] – [place] EL[place]OW LIMITED RIGHT 2V, 05/08/2018. . FINDINGS: Multiple views of the left elbow show interval sideplate and osseous screws fixation of the comminute d proximal ulnar fracture. Proximal radius and the distal humerus both appear to be intact. Elbow samm nt appears to be maintained. CONCLUSION: Open reduction and internal fixation of the previously seen comminuted proximal ulnar fracture. Electronically signed by: Aleksandr Mari MD 05/10/2018 1:46 PM EDT
--- NOTE | 2018-05-10 14:03 | P.DS ---
Date of admission: 05/08/18 12:34 Primary care physician: No Primary Care Physician Brief History from admission: 57-year-old female with no past medical history presented to the emergency room with right elbow pain after fall. Patient states she was in her normal state of health that she was helping her grandson preparing for school this morning she tripped over an object in the house and fell with all of her weight onto her right elbow. She felt a dislodging type movement but did not feel any sudden bruising or swelling at the time. She took her grandson to school and then came directly to the emergency room. Shortly after arriving she began to experience worsening pain and swelling. X-ray of the elbow in the ED showed fracture dislocation of the right elbow. Comminuted and displaced fracture of the proximal ulna with intra-articular extension. Patient was sedated in the ED and a closed reduction was performed by the ED physician. Repeat x-rays showed significantly better alignment of the ulnar fracture post splinting. DS: Diagnosis - Discharge Diagnosis (1) Closed fracture dislocation of elbow Status: Acute (2) Nutrition, metabolism, and development symptoms Status: Acute DS: Medications - Discharge Medications Prescriptions: calcium carbonate-vitamin D3 [Oyster Shell Calcium-Vit D3] 1 tab PO TID #90 tab hydrocodone-acetaminophen 1 tab PO Q3H PRN #40 tab PRN Reason: Pain DS: Summary Hospital Course: X-ray on admission showed fracture dislocation of the right elbow. Comminuted and displaced fracture of the proximal ulna with intra-articular extension was noted. Patient was sedated in the ED and closed reduction was performed by the ED physician. Orthopedic surgery was consult on admission and patient underwent ORIF the following day. Repeat x-ray were reassuring and patient's pain was well-controlled on p.o. medications. Patient was started on vitamin D and calcium and she was discharged with one-week follow-up with orthopedic surgery. - Time Spent with Patient Total time spent providing and/or coordinating discharge services: Less than 30 minutes - Quality: VTE Deep Vein Thrombosis/Pulmonary Embolism Present on Admission: No Exam Vital signs: Vital Signs 05/09/18 14:00 05/09/18 15:00 05/09/18 18:32 Temperature 97.2 F L Pulse Rate 56 L Respiratory Rate 11 L 18 18 Blood Pressure 135/65 111/59 L Pulse Oximetry 96 93 L 05/09/18 20:00 08/15/18 00:00 05/10/18 04:00 Temperature 97.9 F 98.3 F 98.5 F Pulse Rate 65 59 L 65 Respiratory Rate 18 18 18 Blood Pressure 98/59 L 104/56 L 96/58 L Pulse Oximetry 97 96 94 L 05/10/18 08:00 05/10/18 12:00 Temperature 97.3 F L 97.6 F Pulse Rate 67 71 Respiratory Rate 12 20 Blood Pressure 115/69 137/67 Pulse Oximetry 96 98 Intake & Output 05/09/18 05/10/18 05/10/18 18:59 06:59 18:59 Intake Total 1350 / 1350 560 / 560 1000 / 1000 Output Total 100 / 100 Balance 1250 / 1250 560 / 560 1000 / 1000 Weight 65.77 kg Intake: IV 100 / 100 100 / 100 1000 / 1000 LR 1000 mL Inj 1,000 ML @ 50 1000 / 1000 mls/hr IV.CONT .Q20H [facility] Rx#: [id number] Ancef Inj 2,000 MG In NS Inj 80 100 / 100 100 / 100 ML @ 200 mls/hr IV.SIG Q8H [facility] Rx#:[id number] Oral 460 / 460 Anesthesia Amount 1250 / 1250 Output: Estimated Blood Loss 100 / 100 Other: # Voids 1 Date of Last Bowel Movement 05/07/18 05/07/18 05/07/18 Weight On Admission 65.77 kg Narrative: Vital signs noted. No abnormalities GEN: Well-developed female sitting upright in bed in no acute distress. Awake and alert and speaking in full sentences. HEENT: Nonlocalizing. Lungs: Clear to auscultation. Cardiac: S1-S2, no S3 or significant murmurs. Extremities: Right arm splint. Right hand is edematous, but warm and well perfused with sensation and motion intact. Extremities without edema, calf is supple. Results Procedures completed during hospitalization: ORIF of right elbow - Impressions ITS Impressions Forearm X-Ray 05/08/18 08:56 CONCLUSION: Negative fracture of the olecranon with dislocation of the humeral head. Hand X-Ray 05/08/18 08:56 CONCLUSION: Negative for displaced fracture. Humerus X-Ray 05/08/18 08:57 CONCLUSION: 1. Fracture dislocation of the right elbow. Comminuted and displaced fracture of the proximal ulna with intra-articular extension. 2. Radial head is displaced of the radius otherwise appears to be intact. 3. Large associated joint effusion. Elbow X-Ray 05/10/18 00:00 CONCLUSION: Open reduction and internal fixation of the previously seen comminuted proximal ulnar fracture. Discharge Plan - Discharge Disposition Patient Disposition: 01 Discharge Home - Discharge Condition Condition: Stable - Discharge Order Discharge Orders: Discharge Order (Routine); Ordered 05/10/18 Ordered By: Joseph Jorge Orthopedic Clear for Discharge (Routine); Ordered 05/10/18 Ordered By: Ryan Tejeda - Physicians Team Primary Care Provider: Primary Care Lisa Calvillo Attending Provider: Usman Avila Other Providers: Hunter Cummins MD ; Chilo Caceres MD
== END 2018-05-10 18:25 | disposition home or self-care (01) ==
LOC: NEPC 08:28 → NEDA 08:28 → N06 08:28 → NEDA 15:14 → NEPHCDU 16:07 → N07 05-09 08:41 → N06 05-09 08:43
PROVIDERS: ADMIT Family Medicine; ATTEND Family Medicine
DX: M25.521 Pain in right elbow; S52.031A Displaced fracture of olecranon process with intraarticular extension of right ulna, initial encounter for closed fracture; W18.09XA Striking against other object with subsequent fall, initial encounter; Z87.891 Personal history of nicotine dependence; S53.004A Unspecified dislocation of right radial head, initial encounter; Z01.810 Encounter for preprocedural cardiovascular examination; Y92.009 Unspecified place in unspecified non-institutional (private) residence as the place of occurrence of the external cause; Y93.89 Activity, other specified